=== PATIENT | female | born 1950 | race African-American/Black ===

== ENCOUNTER 2019-10-26 22:40 | Emergency (ER) | payer MEDICARE ==
[~2019-10-26] VITALS: Ht 162.6 cm; Wt 77.0 kg
[2019-10-26 23:58] LABS: BASOPHILS % 0.7 % (0.0-2.0); EOSINOPHILS % 0.3 % (0.0-5.0); HEMOGLOBIN. 10.8 g/dL (12.0-16.0); MEAN CORPUSCULAR HEMOGLOBIN 30.2 pg (28.0-32.0); MONOCYTES % 6.1 % (2.0-8.0); NEUTROPHILS % 72.9 % (40.0-76.0); PLATELET 236 x1000/uL (130-400); RED BLOOD CELL COUNT 3.56 mill/uL (4.2-5.4); RED CELL DISTRIBUTION WIDTH 14.3 % (11.6-14.6)
[2019-10-27 03:30] VITALS: BP 168/75
[2019-10-27] MEDS ORDERED: SODIUM CHLORIDE 0.9% 500 ML IV ONE (03:30)
[2019-10-27] MEDS ORDERED: CLINDAMYCIN 600 MG in DEXTROSE 5% WATER 50 ML IV ONE (03:30)
[2019-10-27] MEDS ORDERED: CLINDAMYCIN 600MG PREMIX 50 ML IV NR (03:45)
[2019-10-27] MEDS ORDERED: TETANUS, DIPHTHERIA, PERTUSSIS VAC/PF 0.5ML (>7YR OLD) IM ONE (04:45)
[2019-10-27] MEDS ORDERED: BACITRACIN ZINC OINT UDPKT TOP ONE (04:45)
== END 2019-10-27 05:30 | disposition home or self-care (01) ==
LOC: ER 22:40
DX: M79.674 Pain in right toe(s) (principal); E11.9 Type 2 diabetes mellitus without complications
CPT/HCPCS: 36415; 73630; 80048; 85025; 90471; 90715; 96365; 99284; J3490; J7040; J7060